=== PATIENT | male | born 1990 | race Caucasian/White ===

== ENCOUNTER → 2019-04-12 | Outpatient (CLI) | payer OTHER ==
[~2019-04-12] MED LIST: ALBU8.5H IH; ATOR10TA24 PO; AUG875 PO; CEFPR500PT PO; KET10 PO; METH4TAB66 PO; NO ROUTINE MEDS; OMEP-126 PO; OXYC1TAB54 PO; PRED20TA6 PO; TEST90SO TD
== END ==
LOC: US 12:53
PROVIDERS: ATTEND Nurse Practitioner Family
DX: M79.602 Pain in left arm (principal)

== ENCOUNTER → 2019-04-12 | Outpatient (REF) | payer OTHER ==
[2019-04-12 12:32] LABS: PLATELET COUNT, AUTOMATED 271 K/uL (150-450)
== END ==
PROVIDERS: ATTEND Nurse Practitioner Family
DX: M79.602 Pain in left arm (principal)
CPT/HCPCS: 82040; 82247; 82310; 82374; 82435; 82565; 82947; 84075; 84132; 84155; 84295; 84450; 84460; 84484; 84520; 85025; 85379